=== PATIENT | female | born 1975 | race Caucasian/White ===

== ENCOUNTER → 2017-11-22 11:41 | Outpatient (CLI) | payer BC, SELFPAY ==
[2017-11-22 14:31] LABS: BUN 13 mg/dL (7-18); Glucose 82 mg/dL (74-106)
[2017-11-22 14:32] LABS: Anion Gap 4 (5-15); BUN/Creat Ratio 21.8 RATIO (10-20); Calcium,Total 8.6 mg/dL (8.5-10.1); Chloride 105 mmol/L (98-107); Cholesterol 150 mg/dL (200); EST Glomerular Filtration Rate 116 mL/min (>60); Est Glom Filt Rate - Afr Amer 140 mL/min (>60); High Density Lipoprotein 56 mg/dL; Potassium 4.1 mmol/L (3.5-5.1); Sodium Level 138 mmol/L (136-145); Thyroid Stim Hormone (TSH) 2.08 uIU/mL (0.358-3.74); Triglycerides 95 mg/dL; Very Low Density Lipoprotein 19 mg/dL (5-40)
== END ==
PROVIDERS: Family Provider Family Medicine; PCP Family Medicine; Visit Provider Family Medicine
DX: Z00.00 Encounter for general adult medical examination without abnormal findings (principal)
CPT/HCPCS: 36415; 80048; 80061; 84443

== ENCOUNTER 2018-05-26 08:38 | Emergency (ER) | payer BC, SELFPAY ==
[2018-05-26 08:39] VITALS: BP 99/61; PULSE 104; RESP 18; TEMP 36.8; O2SAT 99; BMI 21.7
--- NOTE | 2018-05-26 09:14 | ED.VISSUMM ---
- ER Visit Summary Date of Service: 05/26/18 Chief Complaint: [] Left side abdominal pain for a few days History of Present Illness: The patient is a 43 F [] patient has had nonspecific abdominal discomforts for the last week including sense of constipation and diarrhea, cramping for the last few days she has noticed pain to the left lower abdomen that is simply not gone away she is able to eat and drink her bowel habits are now returned to formed stool she occasionally stools which she describes as grease and she has been doing it for some time. She has no known history of GI ailment of any kind she has had no exposures no antibiotics bladder habits have been normal she denies her only abdominal surgery was she is on no chronic medications Physical Examination: [] Her vital signs are within normal range in no distress head neck chest unremarkable the abdomen there is vague pain to the left lower abdomen there is no rebound guarding organomegaly upper lower extreme is back unremarkable neurologically is awake moving all 4 Test Results: [] Emergency Department Course and Treatment: [] IV fluids screening labs CT pain management The patient studies are all generally unremarkable please see those reports except the CT scan shows findings of uncomplicated diverticulitis on reevaluation again her abdomen shows some pain to the left lower abdomen no rebound or guarding she is feeling better we discussed inpatient versus outpatient management she feels as if she wants to try outpatient management she was given Cipro and Flagyl here p.o. which he took without difficulty she will be discharged on those medications as well as Naprosyn [place] as rescue medicine Colace she understands he follow-up with her family physician and referral for GI possible colonoscopy and other management and to return for change in symptoms and avoid any foods with seeds popcorn etc., and generally to return if her symptoms intensify or change and again she agrees with this plan Treatment Plan: [] Disposition: [] Home stable Impression: [] Left lower quadrant pain related to diverticulitis This note was generated with True Style dictation software. It may contain incorrect words, spelling, and punctuation that were not noted in review of the chart prior to signing ED Disposition - Plan for ED Patient: Chief Complaint: Abd Pain Referrals: Yoni Burrows MD [Primary Care Provider] -
[2018-05-26] MEDS: Ondansetron 4 MG/2 ML Vial IV (09:33)
[2018-05-26] MEDS: morphine 8 MG/ML Syringe IV (09:33)
[2018-05-26] MEDS: 0.9% Normal Saline 1,000 ML 125 ML IV (09:34)
[2018-05-26 09:40] LABS: Absolute Lymphocyte Count 1.02 X10^3/ul (0.83-4.51); Absolute Neutrophil Count 8.8 X10^3/uL (2.0-7.7); Basophil# 0.01 X10^3/uL; Basophil% 0.1 % (0-1); Eosinophil# 0.02 X10^3/uL; Eosinophils% 0.2 % (0-5); Hematocrit 39.3 % (37-47); Hemoglobin 12.9 g/dl (12.0-15.0); Lymphocyte # 1.02 X10^3/ul (4.0); Lymphocyte % 9.4 % (19-41); Mean Corp Hgb Conc 32.8 g/gl (32-36); Mean Corpuscular Hgb 30.6 pg (27.0-32.0); Mean Corpuscular Volume 93.3 fL (81-99); Mean Platelet Vol. 9.8 fl (6.2-12.0); Monocyte# 1.01 X10^3/uL; Monocyte% 9.3 % (0-10); Neutrophil # 8.82 X10^3/uL (2.7-7.7); Neutrophil % 80.9 % (47-70); Platelet Count 185 K/mm3 (150-450); RBC Distribution Width CV 13.2 % (11.6-14.6); Red Blood Count 4.21 M/mm3 (4.2-5.4); White Blood Count 10.9 K/mm3 (4.4-11.0)
[2018-05-26 09:41] LABS: POSITIVE COUNT NO; POSITIVE DIFFERENTIAL NO; POSITIVE MORPHOLOGY NO
[2018-05-26 09:54] LABS: AST(SGOT) 16 U/L (15-37); Alanine Aminotransfer ALT/SGPT 15 U/L (13-56); Albumin, Serum 3.6 g/dL (3.2-5.0); Alkaline Phosphatase 33 U/L (45-117); Anion Gap 8 (5-15); BUN 14 mg/dL (7-18); BUN/Creat Ratio 18.7 RATIO (10-20); Bilirubin, Direct 0.19 mg/dL (0.00-0.30); Calcium,Total 8.7 mg/dL (8.5-10.1); Chloride 105 mmol/L (98-107); Creatinine, Serum 0.75 mg/dL (0.55-1.02); EST Glomerular Filtration Rate 89 mL/min (>60); Est Glom Filt Rate - Afr Amer 108 mL/min (>60); Estimated Creatinine Clearance 88.68 ml/min; Globulin 3.6 g/dL (2.2-4.2); Glucose 98 mg/dL (74-106); Lipase 132 U/L (73-393); Potassium 4.3 mmol/L (3.5-5.1); Protein, Total 7.2 g/dL (6.4-8.2); Sodium Level 140 mmol/L (136-145)
[2018-05-26 10:10] LABS: Pregnancy, Serum, hCG Quali. NEGATIVE Negative (0-9 Nonpreg)
[2018-05-26 12:10] VITALS: BP 119/74; PULSE 67; RESP 15; O2SAT 99
[2018-05-26 12:16] LABS: Bacteria 0 SEEN /hpf (None Seen); Mucous, Urine 0 SEEN /hpf (<or=2+); Red Blood Cells-Urine 0 SEEN /hpf (0-5); White Blood Cells 0 SEEN /hpf (0-5)
[2018-05-26 12:17] LABS: Color, Urine Yellow (Yellow); Glucose, Dipstick Normal (Normal); Ketone-Dipstick 5 mg/dl (Negative); Leukocyte Esterase-Dipstick Negative /ul (Negative); Nitrite-Dipstick Negative (Negative); Occult Blood-Urine Negative /ul (Negative); Protein-Dipstick Negative (Negative); Urine Bilirubin Dipstick Negative (Negative); Urine Clarity Clear (Clear); Urine Urobilinogen Normal (Normal)
[2018-05-26 12:24] LABS: Squamous Epithelial Cells - UA 0-5 SEEN /hpf (5-10)
--- NOTE | 2018-05-26 13:01 | ED.DEP ---
ED Disposition - Plan for ED Patient: Chief Complaint: Abd Pain Instructions: ED Diverticulitis Prescriptions: Hydrocodone Bitart/Apap 5-325 [[place] 5MG-325MG] 1 tab PO Q4H PRN PRN 2 Days #10 tab PRN Reason: Pain Docusate Sodium [Colace] 100 mg PO DAILY #20 cap Metronidazole [Flagyl] 500 mg PO Q8H #21 tab Naproxen [Naprosyn] 500 mg PO BID PRN #20 tab Ciprofloxacin [Cipro] 500 mg PO BID #14 tab Referrals: Yoni Burrows MD [Primary Care Provider] -
[2018-05-26 13:24] VITALS: BP 129/74; PULSE 71; RESP 15; O2SAT 98
[2018-05-26] MEDS: metroNIDAZOLE 500 MG Tablet PO (13:25)
[2018-05-26] MEDS: Ciprofloxacin 250 MG Tablet PO (13:25)
== END 2018-05-26 13:28 | disposition home or self-care (01) ==
LOC: ED 09:11
PROVIDERS: Emergency Provider Emergency Medicine; Family Provider Family Medicine; PCP Family Medicine
DX: K57.32 Diverticulitis of large intestine without perforation or abscess without bleeding (principal); R10.32 Left lower quadrant pain
CPT/HCPCS: 74176; 80048; 80076; 81001; 83690; 84703; 85025; 96361; 96374; 96375; 99284; J7030; J2405

== ENCOUNTER → 2020-08-30 12:06 | Outpatient (CLI) | payer BC, SELFPAY | PROVIDERS: PCP Family Medicine; Visit Provider Registered Nurse | DX: J98.8 Other specified respiratory disorders (principal) | CPT/HCPCS: 87635; U0003 ==

== ENCOUNTER → 2021-01-10 16:18 | Outpatient (CLI) | payer BC, SELFPAY ==
[2021-01-10 18:58] LABS: Amphetamine Urine VISTA NEGATIVE (<1000 ng/mL); Barbiturate Urine VISTA NEGATIVE (< 200 ng/mL); Benzodiazepine Urine VISTA POSITIVE (< 200 ng/mL); Cocaine Urine VISTA NEGATIVE (< 300 ng/mL); Ecstacy Urine VISTA NEGATIVE (< 500 ng/mL); Methadone Urine VISTA NEGATIVE (< 300 ng/mL); PCP Urine VISTA NEGATIVE (< 25 ng/mL); THC Urine VISTA POSITIVE (< 50 ng/mL); Vista UDS pH Range 5
[2021-01-10 18:59] LABS: Anion Gap 7 (5-15); BUN 9 mg/dL (7-18); BUN/Creat Ratio 12.4 RATIO (10-20); Calcium,Total 8.8 mg/dL (8.5-10.1); Chloride 102 mmol/L (98-107); Cholesterol 153 mg/dL (200); Creatinine, Serum 0.72 mg/dL (0.55-1.02); EST Glomerular Filtration Rate 91 mL/min (>60); Est Glom Filt Rate - Afr Amer 110 mL/min (>60); Glucose 69 mg/dL (74-106); High Density Lipoprotein 60 mg/dL; Potassium 3.6 mmol/L (3.5-5.1); Sodium Level 138 mmol/L (136-145); Triglycerides 54 mg/dL; Very Low Density Lipoprotein 11 mg/dL (5-40)
[2021-01-10 19:01] LABS: Vitamin D,25 Hydroxy 60.7 ng/mL
== END ==
LOC: MFPLAB 16:19
PROVIDERS: PCP Family Medicine; Visit Provider Family Medicine
DX: Z00.00 Encounter for general adult medical examination without abnormal findings (principal); F41.1 Generalized anxiety disorder
CPT/HCPCS: 36415; 80048; 80061; 80307; 82306

== ENCOUNTER → 2021-03-09 09:16 | Outpatient (CLI) | payer BC, SELFPAY ==
--- NOTE | 2021-03-09 09:25 | RAD_ITS ---
STUDY: X-RAY - PELVIS AND RIGHT HIP REASON FOR EXAM: Female, 46 years old. Pain in the right hip. TECHNIQUE: views of the pelvis and hip. COMPARISON: None. FINDINGS: There is a non-specific bowel gas pattern. Normal visualized soft tissue structures. Phleboliths are seen in the pelvis. There is an IUD centrally. Normal bilateral iliac wings, sacroiliac joints and visualized sacrum. Normal bilateral superior and inferior pubic rami. Normal pubic symphysis. Normal bilateral ischial tuberosities. Normal visualized right femoral head. Normal right acetabulum. Normal right hip joint. RAD/HIP, UNI W/ Pelvis 2-3 Views IMPRESSION: Normal x-ray examination of the pelvis and right hip. Electronically Signed: Adeel Graham DO at 23:55 EDT Tel [phone], Service support ,
== END ==
LOC: MTRAD 09:18
PROVIDERS: PCP Family Medicine; Referring Provider Family Medicine; Visit Provider Family Medicine
DX: M25.551 Pain in right hip (principal)
CPT/HCPCS: 73502

== ENCOUNTER → 2021-09-08 14:07 | Outpatient (CLI) | payer BC, SELFPAY | PROVIDERS: PCP Family Medicine; Referring Provider Physician Assistant Medical; Visit Provider Physician Assistant Medical | DX: Z11.52 Encounter for screening for COVID-19 (principal) | CPT/HCPCS: 87635; U0005; U0003 ==

== ENCOUNTER 2023-07-07 12:32 | Emergency (ER) | payer OTHER, SELFPAY ==
[2023-07-07 12:32] VITALS: BP 118/75; PULSE 88; RESP 16; TEMP 36.6; O2SAT 100; BMI 20.3
--- NOTE | 2023-07-07 12:48 | CT_ITS ---
STUDY: CT ABDOMEN AND PELVIS WITH CONTRAST REASON FOR EXAM: Female, 48 years old. abdominal pain LLQ. HISTORY OF DIVERTICULITIS RADIATION DOSAGE (If Supplied By Facility): CTDIvol = ( 11.43 ) mGy, DLP = ( 456.76 ) mGycm TECHNIQUE: Transaxial images were obtained from the dome of the diaphragm to the symphysis pubis without oral contrast. IV 75mL Isovue-[id number] was administered. Sagittal and coronal images were reconstructed. Individualized dose optimization techniques were used for this CT. COMPARISON: None. FINDINGS: The visualized lung bases are unremarkable. The visualized portions of the heart are within normal limits. Normal liver. Normal gallbladder and extrahepatic biliary system. Normal spleen. Normal pancreas. Normal bilateral adrenal glands. Normal right kidney. Normal left kidney. Suspect bilateral nonobstructing renal stones. No hydronephrosis, ureteral stone, ureteral dilatation. Normal visualized stomach. Normal small intestine. There are multiple colonic diverticula consistent with diverticulosis. Subtle stranding of surrounding fat of the distal descending colon suggestive of diverticulitis. No loculated fluid collection to suggest abscess. No pneumoperitoneum to suggest perforation. The appendix is visualized and appears normal. Normal abdominal aorta. Normal inferior vena cava. Normal retroperitoneum. Normal urinary bladder. Intrauterine device in the uterus. There is a small umbilical hernia containing fat. Normal osseous structures. CT/Abdomen/Pelvis W IV Cont ONLY IMPRESSION: Suspect mild diverticulitis of the distal descending colon. No abscess or perforation Electronically Signed: Chava Richard MD at 13:35 EDT ,
--- NOTE | 2023-07-07 12:49 | ED.VIS.GI ---
HPI <ALEJANDRA Henry - Last Filed: 07/07/23 15:03> HPI - GI History of Present Illness Chief Complaint: Abd Pain Narrative Narrative: Patient presenting today due to intermittent left lower quadrant aching abdominal pain that she has had since Sunday. She reports that she does have a history of diverticulitis and thought that this felt similar so she saw her PCP on Sunday who prescribed her Flagyl and ciprofloxacin. She reports that she seemed to be feeling better until yesterday when she started to have increased nausea, decreased appetite, and continued abdominal pain. She denies any fever, chills, diarrhea, blood in the stool, constipation. Previous abdominal surgeries include . She reports that she has had her tubes tied. PFSH <ALEJANDRA Henry - Last Filed: 07/07/23 15:03> PFSH Home Medications alprazolam 1 mg tablet (Xanax) 1 mg PO BID PRN PRN Anxiety 05/26/18 [History Last Taken Unknown] ciprofloxacin HCl 500 mg tablet 500 mg PO BID #14 tabs 05/26/18 [Rx Last Taken Unknown] docusate sodium 100 mg capsule 100 mg PO DAILY #20 caps 05/26/18 [Rx Last Taken Unknown] hydrocodone-acetaminophen 5-325mg 5mg-325mg 1 tab PO Q4H PRN PRN Pain 2 days #10 tabs 05/26/18 [Rx Last Taken Unknown] metronidazole 500 mg tablet 500 mg PO Q8H #21 tabs 05/26/18 [Rx Last Taken Unknown] naproxen 500 mg tablet 500 mg PO BID PRN #20 tabs 05/26/18 [Rx Last Taken Unknown] ondansetron 4 mg disintegrating tablet 4 mg PO Q8H PRN PRN Nausea #10 tabs 07/07/23 [Rx Last Taken Unknown] Allergy/AdvReac Type Severity Reaction Status Date / Time No Known Allergies Allergy Verified 07/07/23 12:34 Social History Smoking Status: Former smoker ROS <ALEJANDRA Henry - Last Filed: 07/07/23 15:03> ROS ED Constitutional Constitutional ED: Denies chills or fever(s) Cardiovascular Cardiovascular: Denies chest pain Respiratory/Chest Respiratory/Chest: Denies cough or dyspnea Gastrointestinal Gastrointestinal: Reports abdominal pain and nausea; Denies constipation, diarrhea, hematochezia, melena or vomiting Genitourinary Genitourinary ED: Denies dysuria, hematuria or urinary urgency Musculoskeletal Musculoskeletal: Denies arthralgias or myalgias Integumentary Denies rash Neurologic Neurologic: Denies weakness EXAM <ALEJANDRA Henry - Last Filed: 07/07/23 15:03> Physical Exam Const Vital Signs: 07/07/23 12:32 07/07/23 14:08 Temperature 98 F Temperature Source Temporal Pulse Rate 88 82 Respiratory Rate 16 16 Blood Pressure 118/75 108/79 Blood Pressure Mean 89 88 Pulse Ox 100 98 Oxygen Delivery Method Room Air Positive well nourished, well developed and no apparent distress General Appearance ED: well developed HEENT Reports normocephalic and head/scalp atraumatic Mouth ED: Yes moist mucous membranes normal Eyes PERRL and EOMs intact bilaterally Neck full ROM and supple Chest Wall inspection of chest normal Resp normal respiratory effort and clear to auscultation bilaterally Cardio regular rate and regular rhythm GI soft to palpation, non-distended and no masses GI Narrative: Left lower quadrant tenderness to palpation without any rigidity, guarding, or peritoneal signs. Back/Spine normal ROM and normal to inspection Extremity normal to inspection and full ROM Neuro oriented x3, CN's II-XII intact bilaterally, moves all extremities, no focal motor deficits and no sensory deficits noted Sensorium / Orientation: awake and alert Psych mental status grossly normal and thought process normal Skin no rashes or lesions noted and no wounds <Dr. Jesus Odell MD - Last Filed: 07/07/23 13:12> Physical Exam Const Vital Signs: 07/07/23 12:32 07/07/23 14:08 Temperature 98 F Temperature Source Temporal Pulse Rate 88 82 Respiratory Rate 16 16 Blood Pressure 118/75 108/79 Blood Pressure Mean 89 88 Pulse Ox 100 98 Oxygen Delivery Method Room Air MDM <ALEJANDRA Henry - Last Filed: 07/07/23 15:03> [facility] Narrative Medical decision making narrative: Patient presenting due to left lower quadrant abdominal pain that she has had since Sunday. She is nontoxic-appearing, she is in no acute distress. Vitals are unremarkable. She saw her PCP for this on Sunday who started her on Cipro and Flagyl but she began to feel worse yesterday and decided that she needed to come in for evaluation. CT of the abdomen pelvis will be obtained to rule out diverticulitis, perforation or abscess formation, bowel obstruction, kidney stone, and other abdominal etiology. Labs will be obtained and patient will be given Zofran and Toradol. Lab overall unremarkable. CT does show mild diverticulitis of the distal descending colon, no perforation or abscess formation. She is on a 2-week course of antibiotics and is to continue to take these. She will be given a prescription for Zofran. On reexamination she reports improvement of her symptoms. She will be discharged home in stable condition and is comfortable with plan. I have personally performed a face to face assessment of the patient and have reviewed the JESUS Note. I performed a substantive portion of the visit including all aspects of the following. My wan findings include: History is 48-year-old female left lower quadrant abdominal pain. Is been on antibiotics Cipro and Flagyl since Sunday. Still having left lower quadrant pain. History of prior diverticulitis. She is just concerned it may not be improving. Started on antibiotics by her primary care physician. Exam is [well-appearing 48-year-old. Vital signs stable afebrile. Does not look septic toxic or in distress. H EENT exam unremarkable. Lungs clear. Heart regular rhythm. Abdomen soft nondistended normal bowel sounds no peritoneal signs. Reproducible left lower quadrant tenderness. Right upper and right lower quadrant unremarkable. No hernia. No mass. No pulsatile mass. No distention or obstruction. Normal bowel sounds abdomen soft. Otherwise exam unremarkable.] Medical Decision Making [patient will be worked up for left lower quadrant abdominal pain including a CAT scan. Differential would include diverticulitis versus other etiologies.] Other additions or changes: [None] Lab Data Labs: Laboratory Results - last 24 hr 07/07/23 07/07/23 07/07/23 12:55 13:10 13:56 WBC 7.2 RBC 4.81 Hgb 14.9 Hct 44.8 MCV 93.1 MCH 31.0 MCHC 33.3 RDW Std Deviation 43.1 RDW Coeff of Kristie 12.6 Plt Count 270 MPV 9.4 Immature Gran % (Auto) 0.300 Neut % (Auto) 74.2 H Lymph % (Auto) 17.9 L Star[place] % (Auto) 6.9 Eos % (Auto) 0.3 Baso % (Auto) 0.4 Absolute Neuts (auto) 5.3 Absolute Lymphs (auto) 1.29 Nucleated RBC % 0 Sodium 140 Potassium 3.6 Chloride 105 Carbon Dioxide 26.0 Anion Gap 9 BUN 11 Creatinine 0.90 Estim Creat Clear Calc 67.47 Est GFR (MDRD) Af Amer 85 Est GFR (MDRD) Non-Af 70 BUN/Creatinine Ratio 12.2 Glucose 115 H Calcium 9.3 Total Bilirubin 0.50 AST 16 ALT 19 Alkaline Phosphatase 39 L Total Protein 8.3 H Albumin 4.0 Globulin 4.3 H Albumin/Globulin Ratio 0.9 Lipase 27 Urine Color Cancelled Yellow Urine Clarity Cancelled Clear Urine pH Cancelled 7.0 Ur Specific [place] Cancelled 1.010 U Specif Grav (Refrac) Cancelled Urine Protein Cancelled 30 H Urine Glucose (UA) Cancelled Normal Urine Ketones Cancelled 50 H Urine Occult Blood Cancelled 10 H Urine Nitrite Cancelled Positive H Urine Bilirubin Cancelled Negative Urine Urobilinogen Cancelled Normal Ur Leukocyte Esterase Cancelled 100 H Urine RBC Cancelled 0 SEEN Urine WBC Cancelled 0 SEEN Ur Squamous Epith Cells Cancelled 0-5 SEEN Ur Transition Epith Cell Cancelled Ur Renal Epithelial Cell Cancelled Calcium Oxalate Crystal Cancelled 2+ Uric Acid Crystals Cancelled Triple Phos Crystals Cancelled Other Crystals Cancelled Amorphous Sediment Cancelled Urine Bacteria Cancelled 0 SEEN Hyaline Casts Cancelled Fine Granular Casts Cancelled Coarse Granular Casts Cancelled Waxy Casts Cancelled RBC Casts Cancelled WBC Casts Cancelled Urine Mucus Cancelled 0 SEEN Urine Trichomonas Cancelled Urine Yeast Cancelled Radiography Diagnostic Testing: Clinical Impression(s) from Imaging Studies Abdomen/Pelvis CT 07/07/23 12:48 IMPRESSION: Suspect mild diverticulitis of the distal descending colon. No abscess or perforation Electronically Signed: Chava Richard MD at 13:35 EDT , <Dr. Jesus Odell MD - Last Filed: 07/07/23 13:12> MDM MDM Narrative Medical decision making narrative: Patient presenting due to left lower quadrant abdominal pain that she has had since Sunday. She is nontoxic-appearing, she is in no acute distress. Vitals are unremarkable. She saw her PCP for this on Sunday who started her on Cipro and Flagyl but she began to feel worse yesterday and decided that she needed to come in for evaluation. CT of the abdomen pelvis will be obtained to rule out diverticulitis, perforation or abscess formation, bowel obstruction, kidney stone, and other abdominal etiology. Labs will be obtained and patient will be given Zofran and Toradol. I have personally performed a face to face assessment of the patient and have reviewed the JESUS Note. I performed a substantive portion of the visit including all aspects of the following. My wan findings include: History is 48-year-old female left lower quadrant abdominal pain. Is been on antibiotics Cipro and Flagyl since Sunday. Still having left lower quadrant pain. History of prior diverticulitis. She is just concerned it may not be improving. Started on antibiotics by her primary care physician. Exam is [well-appearing 48-year-old. Vital signs stable afebrile. Does not look septic toxic or in distress. H EENT exam unremarkable. Lungs clear. Heart regular rhythm. Abdomen soft nondistended normal bowel sounds no peritoneal signs. Reproducible left lower quadrant tenderness. Right upper and right lower quadrant unremarkable. No hernia. No mass. No pulsatile mass. No distention or obstruction. Normal bowel sounds abdomen soft. Otherwise exam unremarkable.] Medical Decision Making [patient will be worked up for left lower quadrant abdominal pain including a CAT scan. Differential would include diverticulitis versus other etiologies.] Other additions or changes: [None] Lab Data Labs: Laboratory Results - last 24 hr 07/07/23 07/07/23 07/07/23 12:55 13:10 13:56 WBC 7.2 RBC 4.81 Hgb 14.9 Hct 44.8 MCV 93.1 MCH 31.0 MCHC 33.3 RDW Std Deviation 43.1 RDW Coeff of Kristie 12.6 Plt Count 270 MPV 9.4 Immature Gran % (Auto) 0.300 Neut % (Auto) 74.2 H Lymph % (Auto) 17.9 L [place] % (Auto) 6.9 Eos % (Auto) 0.3 Baso % (Auto) 0.4 Absolute Neuts (auto) 5.3 Absolute Lymphs (auto) 1.29 Nucleated RBC % 0 Sodium 140 Potassium 3.6 Chloride 105 Carbon Dioxide 26.0 Anion Gap 9 BUN 11 Creatinine 0.90 Estim Creat Clear Calc 67.47 Est GFR (MDRD) Af Amer 85 Est GFR (MDRD) Non-Af 70 BUN/Creatinine Ratio 12.2 Glucose 115 H Calcium 9.3 Total Bilirubin 0.50 AST 16 ALT 19 Alkaline Phosphatase 39 L Total Protein 8.3 H Albumin 4.0 Globulin 4.3 H Albumin/Globulin Ratio 0.9 Lipase 27 Urine Color Cancelled Yellow Urine Clarity Cancelled Clear Urine pH Cancelled 7.0 Ur Specific [place] Cancelled 1.010 U Specif Grav (Refrac) Cancelled Urine Protein Cancelled 30 H Urine Glucose (UA) Cancelled Normal Urine Ketones Cancelled 50 H Urine Occult Blood Cancelled 10 H Urine Nitrite Cancelled Positive H Urine Bilirubin Cancelled Negative Urine Urobilinogen Cancelled Normal Ur Leukocyte Esterase Cancelled 100 H Urine RBC Cancelled 0 SEEN Urine WBC Cancelled 0 SEEN Ur Squamous Epith Cells Cancelled 0-5 SEEN Ur Transition Epith Cell Cancelled Ur Renal Epithelial Cell Cancelled Calcium Oxalate Crystal Cancelled 2+ Uric Acid Crystals Cancelled Triple Phos Crystals Cancelled Other Crystals Cancelled Amorphous Sediment Cancelled Urine Bacteria Cancelled 0 SEEN Hyaline Casts Cancelled Fine Granular Casts Cancelled Coarse Granular Casts Cancelled Waxy Casts Cancelled RBC Casts Cancelled WBC Casts Cancelled Urine Mucus Cancelled 0 SEEN Urine Trichomonas Cancelled Urine Yeast Cancelled Radiography Diagnostic Testing: Clinical Impression(s) from Imaging Studies Abdomen/Pelvis CT 07/07/23 12:48 IMPRESSION: Suspect mild diverticulitis of the distal descending colon. No abscess or perforation Electronically Signed: Chava Richard MD at 13:35 EDT , Discharge Plan Triage Chief Complaint: Abd Pain ED Midlevel Provider: Caroline Gibbs ED Provider: Jesus Odell Dx/Rx/DC Orders Clinical Impression: Diverticulitis Instructions: ED Diverticulitis Prescriptions: New ondansetron 4 mg tablet,disintegrating 4 mg PO Q8H PRN PRN (Reason: Nausea) Qty: 10 0RF No Action alprazolam [Xanax] 1 MG tablet 1 mg PO BID PRN PRN (Reason: Anxiety) hydrocodone-acetaminophen 1 TABLET tablet 1 tab PO Q4H PRN PRN (Reason: Pain) 2 Days Qty: 10 0RF metronidazole 500 MG tablet 500 mg PO Q8H Qty: 21 0RF ciprofloxacin HCl 500 MG tablet 500 mg PO BID Qty: 14 0RF docusate sodium 100 MG capsule 100 mg PO DAILY Qty: 20 0RF naproxen 500 MG tablet 500 mg PO BID PRN Qty: 20 0RF Primary Care Provider: Yoni Burrows Referrals: Yoni Burrows MD [Primary Care Provider] - 3-5 Days if not improving Activity Restrictions/Additional Instructions: Follow-up with your PCP and return for any worsening of your symptoms. Disposition Disposition: Home, Self Care Discharge Date/Time: 07/07/23 14:09
[2023-07-07] MEDS: Ondansetron 4 MG/2 ML Vial IV (12:56)
[2023-07-07] MEDS: Ketorolac 15 MG/ML Vial IV (12:56)
[2023-07-07 13:11] LABS: Absolute Lymphocyte Count 1.29 X10^3/uL (0.83-4.51); Absolute Neutrophil Count 5.3 X10^3/uL (2.0-7.7); Basophil# 0.03 X10^3/uL; Basophil% 0.4 % (0-1); Eosinophil# 0.02 X10^3/uL; Eosinophils% 0.3 % (0-5); Hematocrit 44.8 % (37-47); Hemoglobin 14.9 g/dL (12.0-15.0); Lymphocyte # 1.29 X10^3/ul (0.83-4.51); Lymphocyte % 17.9 % (19-41); Mean Corp Hgb Conc 33.3 g/dL (32-36); Mean Corpuscular Volume 93.1 fL (81-99); Mean Platelet Vol. 9.4 fl (6.2-12.0); Monocyte% 6.9 % (0-10); NRBC Flagged by Analyzer 0 % (0-5); Neutrophil # 5.34 X10^3/uL (2.7-7.7); Neutrophil % 74.2 % (47-70); Platelet Count 270 K/mm3 (150-450); RBC Distribution Width CV 12.6 % (11.6-14.6); RBC Distribution Width SD 43.1 fl (35.1-43.9); Red Blood Count 4.81 M/mm3 (4.2-5.4); White Blood Count 7.2 K/mm3 (4.4-11.0)
[2023-07-07 13:27] LABS: ALB/GLOB Ratio 0.9 RATIO (0.9-2.4); AST(SGOT) 16 U/L (15-37); Alanine Aminotransfer ALT/SGPT 19 U/L (13-56); Alkaline Phosphatase 39 U/L (45-117); Anion Gap 9 (5-15); BUN 11 mg/dL (7-18); BUN/Creat Ratio 12.2 RATIO (10-20); Calcium,Total 9.3 mg/dL (8.5-10.1); Chloride 105 mmol/L (98-107); EST Glomerular Filtration Rate 70 mL/min (>60); Est Glom Filt Rate - Afr Amer 85 mL/min (>60); Estimated Creatinine Clearance 67.47 ml/min; Globulin 4.3 g/dL (2.2-4.2); Glucose 115 mg/dL (74-106); Lipase 27 U/L (13-75); Potassium 3.6 mmol/L (3.5-5.1); Protein, Total 8.3 g/dL (6.4-8.2); Sodium Level 140 mmol/L (136-145)
[2023-07-07 14:03] LABS: Bacteria 0 SEEN /hpf (None Seen); Mucous, Urine 0 SEEN /hpf (<or=2+); Red Blood Cells-Urine 0 SEEN /hpf (0-5); White Blood Cells 0 SEEN /hpf (0-5)
[2023-07-07 14:04] LABS: Color, Urine Yellow (Yellow); Glucose, Dipstick Normal (Normal); Ketone-Dipstick 50 mg/dl (Negative); Leukocyte Esterase-Dipstick 100 /ul (Negative); Nitrite-Dipstick Positive (Negative); Occult Blood-Urine 10 /ul (Negative); Protein-Dipstick 30 mg/dl (Negative); Urine Bilirubin Dipstick Negative (Negative); Urine Clarity Clear (Clear); Urine Urobilinogen Normal (Normal)
[2023-07-07 14:08] VITALS: BP 108/79; PULSE 82; RESP 16; O2SAT 98
[2023-07-07 14:14] LABS: Calcium Oxalate Crystals Ur 2+ /hpf (<or=2+); Squamous Epithelial Cells - UA 0-5 SEEN /hpf (5-10)
== END 2023-07-07 14:09 | disposition home or self-care (01) ==
PROVIDERS: Physician Assistant; Emergency Provider Emergency Medicine; PCP Family Medicine; Visit Provider Emergency Medicine
DX: K57.92 Diverticulitis of intestine, part unspecified, without perforation or abscess without bleeding (principal); Z87.891 Personal history of nicotine dependence
CPT/HCPCS: 74177; 80053; 81001; 83690; 85025; 96374; 96375; 99285; J7030; Q9967; J2405

== ENCOUNTER → 2023-07-25 | Outpatient (CLI) | payer OTHER, SELFPAY ==
[2023-07-25 15:09] LABS: Absolute Lymphocyte Count 1.97 X10^3/uL (0.83-4.51); Basophil# 0.04 X10^3/uL; Basophil% 0.5 % (0-1); Eosinophil# 0.03 X10^3/uL; Eosinophils% 0.4 % (0-5); Hematocrit 48.8 % (37-47); Hemoglobin 15.3 g/dL (12.0-15.0); Lymphocyte # 1.97 X10^3/ul (0.83-4.51); Lymphocyte % 26.3 % (19-41); Mean Corp Hgb Conc 31.4 g/dL (32-36); Mean Corpuscular Hgb 30.1 pg (27.0-32.0); Mean Corpuscular Volume 95.9 fL (81-99); Mean Platelet Vol. 10.2 fl (6.2-12.0); Monocyte# 0.49 X10^3/uL; Monocyte% 6.5 % (0-10); NRBC Flagged by Analyzer 0 % (0-5); Neutrophil # 4.95 X10^3/uL (2.7-7.7); Platelet Count 281 K/mm3 (150-450); RBC Distribution Width CV 12.7 % (11.6-14.6); RBC Distribution Width SD 45.6 fl (35.1-43.9); Red Blood Count 5.09 M/mm3 (4.2-5.4); White Blood Count 7.5 K/mm3 (4.4-11.0)
[2023-07-25 15:47] LABS: ALB/GLOB Ratio 0.9 RATIO (0.9-2.4); AST(SGOT) 17 U/L (15-37); Alanine Aminotransfer ALT/SGPT 19 U/L (13-56); Alkaline Phosphatase 34 U/L (45-117); Anion Gap 6 (5-15); BUN 10 mg/dL (7-18); BUN/Creat Ratio 13.8 RATIO (10-20); Calcium,Total 9.1 mg/dL (8.5-10.1); Chloride 103 mmol/L (98-107); Creatinine, Serum 0.73 mg/dL (0.55-1.02); EST Glomerular Filtration Rate 90 mL/min (>60); Est Glom Filt Rate - Afr Amer 109 mL/min (>60); Globulin 4.3 g/dL (2.2-4.2); Glucose 90 mg/dL (74-106); Potassium 4.2 mmol/L (3.5-5.1); Prealbumin 38.2 mg/dL (20.0-40.0); Protein, Total 8.3 g/dL (6.4-8.2); Sodium Level 136 mmol/L (136-145); Thyroid Stim Hormone (TSH) 0.87 uIU/mL (0.358-3.74)
== END | disposition home or self-care (01) ==
LOC: MFPLAB 12:04
PROVIDERS: PCP Family Medicine; Visit Provider Family Medicine
DX: R53.81 Other malaise (principal); R53.83 Other fatigue
CPT/HCPCS: 36415; 80053; 84134; 84443; 85025

== ENCOUNTER → 2023-12-20 | Outpatient (CLI) | payer OTHER, SELFPAY | END | disposition home or self-care (01) | LOC: LABSPEC 15:20 | PROVIDERS: PCP Family Medicine; Referring Provider Physician Assistant Surgical; Visit Provider Physician Assistant Surgical | DX: R30.0 Dysuria (principal) | CPT/HCPCS: 87077; 87086; 87088; 87186 ==

== ENCOUNTER → 2024-03-24 | Outpatient (CLI) | payer OTHER, SELFPAY ==
[2024-03-24 13:34] LABS: Color, Urine Yellow (Yellow); Glucose, Dipstick Normal (Normal); Ketone-Dipstick Negative (Negative); Leukocyte Esterase-Dipstick 100 /ul (Negative); Nitrite-Dipstick Negative (Negative); Occult Blood-Urine 50 /ul (Negative); Protein-Dipstick 30 mg/dl (Negative); Specific Gravity, Urine 1.015 (1.002-1.030); Urine Bilirubin Dipstick Negative (Negative); Urine Clarity Clear (Clear); Urine Urobilinogen Normal (Normal); Urine pH 6.5 (5.0 - 8.0)
[2024-03-24 13:57] LABS: Bacteria 1+ /hpf (None Seen); Mucous, Urine 2+ /hpf (<or=2+); Red Blood Cells-Urine 0-5 SEEN /hpf (0-5); Squamous Epithelial Cells - UA 0-5 SEEN /hpf (5-10); White Blood Cells 10-25 SEEN /hpf (0-5)
== END | disposition home or self-care (01) ==
LOC: LABSPEC 13:04
PROVIDERS: PCP Family Medicine; Referring Provider Physician Assistant; Visit Provider Physician Assistant
DX: R30.0 Dysuria (principal)
CPT/HCPCS: 81001; 87086; 87088

== ENCOUNTER → 2024-06-03 | Outpatient (CLI) | payer OTHER, SELFPAY ==
--- NOTE | 2024-06-03 16:41 | US_ITS ---
STUDY: RENAL ULTRASOUND - COMPLETE REASON FOR EXAM: Female, 49 years old. UTI TECHNIQUE: Ultrasound evaluation of the kidneys was performed with real-time and static slaughter-scale imaging. COMPARISON: CT scan 07/07/2023. FINDINGS: RIGHT KIDNEY: Normal location of the right kidney, which is normal in size. The right kidney measures 9.9 x 4.7 x 5.0 cm. There is a normal cortex of the right kidney. The renal cortex measures 1.8 cm. There is no right renal mass or cyst. Multiple nonobstructing renal stones are seen measuring as much as 1 cm. There is no right hydronephrosis. DISTAL RIGHT URETER: There is non-visualization of the distal right ureter. There is no demonstrated right ureterovesical junction calculus. There is a visualized right ureteral jet. LEFT KIDNEY: Normal location of the left kidney, which is normal in size. The left kidney measures 10.5 x 4.4 x 5.2 cm. There is a normal cortex of the left kidney. The renal cortex measures 1.6 cm. There is no left renal mass or cyst. Multiple nonobstructing renal stones are seen measuring as much as 1 cm. There is no left hydronephrosis. DISTAL LEFT URETER: There is non-visualization of the distal left ureter. There is no demonstrated left ureterovesical junction calculus. There is a visualized left ureteral jet. BLADDER: The urinary bladder has a volume of 38.3 ml. The empty urinary bladder has a volume of 4 ml. There is a normal wall thickness of the distended urinary bladder. There is no demonstrated mass within the urinary bladder. There are no demonstrated bladder calculi. US/Kidney and Bladder IMPRESSION: Nonobstructing renal stones. No hydronephrosis. No acute abnormalities. Electronically Signed: Timmy Fang MD at 16:09 EDT ,
== END | disposition home or self-care (01) ==
LOC: US 16:38
PROVIDERS: PCP Family Medicine; Referring Provider Urology; Visit Provider Urology
DX: N39.0 Urinary tract infection, site not specified (principal)
CPT/HCPCS: 76770

== ENCOUNTER → 2024-06-17 | Outpatient (CLI) | payer OTHER, SELFPAY ==
--- NOTE | 2024-06-17 13:32 | CT_ITS ---
STUDY: CT ABDOMEN AND PELVIS WITHOUT CONTRAST REASON FOR EXAM: Female, 49 years old. KIDNEY STONES. RADIATION DOSAGE (If Supplied By Facility): CTDIvol = ( 6.05 ) mGy, DLP = ( 272.16 ) mGycm TECHNIQUE: Transaxial images were obtained from the dome of the diaphragm to the symphysis pubis without oral contrast, and without intravenous contrast. Sagittal and coronal images were reconstructed. Individualized dose optimization techniques were used for this CT. COMPARISON: Comparison is made with prior study July 07, 2023. FINDINGS: The visualized lung bases are unremarkable. The visualized portions of the heart are within normal limits. Normal liver. Normal gallbladder and extrahepatic biliary system. Normal spleen. Normal pancreas. Normal bilateral adrenal glands. There is a 3.5 mm nonobstructive calculus in the upper pole calyx of the right kidney. There are 2, tiny nonobstructive calculi in the lower pole calyx of the left kidney. Diffuse circumferential wall thickening of the stomach although no oral contrast is seen. This is unchanged. Normal small intestine. There are multiple colonic diverticula consistent with diverticulosis. The appendix is visualized and appears normal. Normal abdominal aorta. Normal inferior vena cava. Normal retroperitoneum. Normal urinary bladder. IUD is seen within the uterus. Calcified phleboliths. Normal abdominal wall. Normal osseous structures. CT/Abdomen/Pelvis without Cont IMPRESSION: Nonobstructive small bilateral intrarenal renal calculi. Multiple calcified phleboliths are seen in the pelvis. IUD is seen within the uterus. Electronically Signed: Chong Harden MD at 14:46 EDT ,
== END | disposition home or self-care (01) ==
LOC: CT 13:30
PROVIDERS: PCP Family Medicine; Referring Provider Urology; Visit Provider Urology
DX: N20.0 Calculus of kidney (principal)
CPT/HCPCS: 74176

== ENCOUNTER → 2024-11-07 | Outpatient (CLI) | payer OTHER, SELFPAY ==
--- NOTE | 2024-11-07 10:47 | RAD_ITS ---
PROCEDURE: AP PELVIS AND BILATERAL HIPS REASON FOR EXAM: PATIENT FELL. PAIN. TECHNIQUE: AP VIEW OF THE PELVIS AND TWO VIEWS OF THE BILATERAL HIPS COMPARISON: 03/09/2021 FINDINGS: No fracture. No suspicious bone lesion. Normal alignment. Soft tissues are unremarkable. Multiple calcified phleboliths in the pelvis. RAD/Hips B/L min 2 views w/ Pelvis IMPRESSION: No acute fractures or other abnormalities. Reading Location: [facility]
--- NOTE | 2024-11-07 10:47 | RAD_ITS ---
PROCEDURE: LUMBOSACRAL SPINE SERIES, FOUR VIEWS REASON FOR EXAM: PATIENT FELL WHILE SERVING FOOD. TECHNIQUE: AP, LATERAL, AND BOTH OBLIQUES OF THE LUMBAR SPINE. COMPARISON: None. FINDINGS: Mild dextrocurvature of the thoracolumbar spine. No spondylolysis or spondylolisthesis. No fractures. No segmentation anomalies. Paraspinal contours are preserved. RAD/L/S Spine Min 4 Views IMPRESSION: Mild scoliosis. No acute traumatic abnormalities involving the lumbar spine. Reading Location: [facility]
--- NOTE | 2024-11-07 10:47 | RAD_ITS ---
PROCEDURE: LEFT RIBS, TWO VIEWS REASON FOR EXAM: PATIENT FELL WHILE SERVING FOOD. TECHNIQUE: AP AND OBLIQUE PROJECTIONS OF THE LEFT RIBS. COMPARISON: None. FINDINGS: No displaced rib fractures are identified. No suspicious lytic or blastic rib lesions. RAD/Ribs Unil 2V No CXR IMPRESSION: NO EVIDENCE OF ACUTE RIB FRACTURE OR PNEUMOTHORAX. Reading Location: [facility]
== END | disposition home or self-care (01) ==
PROVIDERS: PCP Family Medicine; Referring Provider Physician Assistant Surgical; Visit Provider Physician Assistant Surgical
DX: S20.212A Contusion of left front wall of thorax, initial encounter (principal); S70.02XA Contusion of left hip, initial encounter; S39.012A Strain of muscle, fascia and tendon of lower back, initial encounter; X58.XXXA Exposure to other specified factors, initial encounter
CPT/HCPCS: 71100; 72110; 73521

== ENCOUNTER → 2025-05-15 | Outpatient (CLI) | payer OTHER, SELFPAY ==
--- NOTE | 2025-05-15 15:47 | RAD_ITS ---
EXAM: XR Right Elbow Complete, 3 or More Views CLINICAL INDICATION: ELBOW PAIN TECHNIQUE: Frontal, lateral and oblique views of the right elbow. COMPARISON: No relevant prior studies available. FINDINGS: BONES/JOINTS: Unremarkable. No acute fracture. No dislocation. SOFT TISSUES: Unremarkable. RAD/Elbow min 3 Views IMPRESSION: No acute fracture. Reading Location: [id number]
== END | disposition home or self-care (01) ==
PROVIDERS: PCP Family Medicine; Referring Provider Family Medicine; Visit Provider Family Medicine
DX: M25.521 Pain in right elbow (principal)
CPT/HCPCS: 73080

== ENCOUNTER → 2025-08-15 | Outpatient (CLI) | payer OTHER, SELFPAY | END | disposition home or self-care (01) | LOC: LABSPEC 08-17 08:33 | PROVIDERS: PCP Family Medicine; Visit Provider Nurse Practitioner Family | DX: R82.90 Unspecified abnormal findings in urine (principal) | CPT/HCPCS: 87086 ==